=== PATIENT | female | born 1980 | race Two or more races ===

== ENCOUNTER 2017-10-11 17:16 | Emergency (ER) | payer SELFPAY ==
[~2017-10-11] VITALS: Ht 154.9 cm; Wt 105.2 kg
[2017-10-11 17:21] VITALS: BP 148/78
[2017-10-11] MEDS ORDERED: cefTRIAXone SOD 1,000 MG VL IM ONE (18:15)
== END 2017-10-11 18:22 | disposition home or self-care (01) ==
LOC: ER 17:16
DX: J18.1 Lobar pneumonia, unspecified organism (principal)
CPT/HCPCS: 71046; 96372; 99284; J0696

== ENCOUNTER 2023-10-03 16:22 | Emergency (ER) | payer MEDICAID ==
[~2023-10-03] VITALS: Ht 154.9 cm; Wt 100.8 kg
[2023-10-03 17:01] VITALS: BP 157/81; PULSE 73; RESP 16; TEMP 97.8; O2SAT 98
[2023-10-03] MEDS: EPINEPHrine HCL 1 MG/1 ML AMP SC ONE (17:17)
[2023-10-03] MEDS: methylPREDNISolone SOD SUCC 125 MG/2 ML VL IM ONE (17:17)
[2023-10-03] MEDS ORDERED: PRED20TA2 PO (17:23)
[2023-10-03] MEDS ORDERED: HYDR50TA69 PO (17:23)
== END 2023-10-03 17:34 | disposition home or self-care (01) ==
LOC: ER 16:22
DX: T78.40XA Allergy, unspecified, initial encounter (principal); X58.XXXA Exposure to other specified factors, initial encounter
CPT/HCPCS: 96372; 99284; J0171; J2919